=== PATIENT | male | born 1950 | race Caucasian/White ===

== ENCOUNTER 2022-03-20 07:56 | Inpatient (IN) | payer MEDICARE, OTHER ==
[2022-03-20] VITALS (26 sets, daily range): BP systolic 111–149; BP diastolic 41–83
[~2022-03-20] VITALS: Ht 157.5 cm; Wt 85.0 kg
--- NOTE | 2022-03-20 08:04 | NUR ---
TO ER BED 10. BIB RA 39 FROM HOME,GENERALIZED WEAKNESS, UNABLE TO SLEEP X 1 WEEK. 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 A&OX1. ATTACHED TO MONITOR, PACER PADS APPLIED. DR CURRY AT BEDSIDE.
--- NOTE | 2022-03-20 08:12 | NUR ---
IV LINE ESTABLISHED ON RAC #18, BLOOD DRAWN AND SENT TO LAB.
[2022-03-20] MEDS ORDERED: ONDANSETRON HCL/PF 4 MG/2 ML VIAL ONE (08:22)
[2022-03-20] MEDS ORDERED: MORPHINE SULFATE INJ 4 MG/ML DISP.SYRIN ONE ×2 (08:22→09:22)
--- NOTE | 2022-03-20 08:29 | NUR ---
ACCUCHECK 87MG/DL
[2022-03-20] MEDS ORDERED: ONDANSETRON HCL/PF 4 MG/2 ML VIAL IVP ONE (08:30)
[2022-03-20] MEDS ORDERED: MORPHINE SULFATE INJ 2 MG/ML DISP.SYRIN IV ONE ×2 (08:30→09:30)
[2022-03-20 08:34] LABS: BASOPHILS % (AUTO) 0.3 % (0.0-2.0); EOSINOPHILS % (AUTO) 0.3 % (0.0-6.0); HEMATOCRIT 24 % (39-51); HEMOGLOBIN 7.8 g/dL (13.5-17.5); LYMPHOCYTES # (AUTO) 0.9 K/uL (0.8-4.8); MEAN CORPUSCULAR HGB CONC 33 g/dl (31.0-36.0); MEAN CORPUSCULAR VOLUME 97 fL (80-96); MONOCYTES # (AUTO) 0.9 K/uL (0.1-1.30); NEUTROPHILS # (AUTO) 8.3 K/uL (1.8-8.9); NEUTROPHILS % (AUTO) 81.4 % (43.0-81.0); PLATELET COUNT (AUTO) 281 K/uL (150-450); RED BLOOD CELL COUNT(AUTO) 2.42 MIL/uL (4.5-6.0); WHITE BLOOD COUNT (AUTO) 10.2 K/uL (4.3-11.0)
[2022-03-20 08:56] LABS: CARBON DIOXIDE 26 mmol/L (21-32); CHLORIDE 106 mmol/L (98-107); CREATININE 2.8 mg/dL (0.6-1.3); GLUCOSE 101 mg/dL (74-106); POTASSIUM 4.4 mmol/L (3.5-5.1); SODIUM SERUM 139 mmol/L (136-145); UREA NITROGEN, BLOOD 41 mg/dL (7-18)
--- NOTE | 2022-03-20 08:59 | NUR ---
PAGED [facility]
[2022-03-20] MEDS ORDERED: ATROPINE SULFATE INJ 1 MG/ML VIAL ONE (09:00)
[2022-03-20] MEDS ORDERED: ATROPINE SULFATE INJ 1 MG/ML VIAL IV ONE (09:00)
--- NOTE | 2022-03-20 09:06 | NUR ---
AND DAUGHTER CAME IN, [facility]: DR MAIN JAMES-CARDIOTHORACIC SX, DR LISBETH BUTTERFIELD-,MARINE ENGINE MECHANIC, DR ZOË GORDILLO-MACHINE CLERICAL VERIFIER
[2022-03-20 09:09] LABS: ALANINE AMINOTRANSFERASE 16 U/L (12-78); ALBUMIN 2.8 g/dL (3.4-5.0); ALKALINE PHOSPHATASE 67 U/L (46-116); ASPARTATE AMINOTRANSFERASE 12 U/L (15-37); BILIRUBIN,DIRECT 0.2 mg/dL (0.0-0.2); BILIRUBIN,TOTAL 0.6 mg/dL (0.2-1.0); TOTAL PROTEIN, SERUM 6.4 g/dL (6.4-8.2)
--- NOTE | 2022-03-20 09:11 | NUR ---
PAGED DR. JAMES
--- NOTE | 2022-03-20 09:13 | NUR ---
DAUGHTER AT BEDSIDE [phone]
--- NOTE | 2022-03-20 09:29 | NUR ---
PAGED DR. JAMES AGAIN
--- NOTE | 2022-03-20 10:06 | NUR ---
PT AND FAMILY REFUSED CTA UNTIL THEY CONTACT THEIR LOCKSTITCH SLEEVE SETTER, AWARE.
[2022-03-20] MEDS ORDERED: NIFE30TA91 PO (10:17)
[2022-03-20] MEDS ORDERED: CILO100T PO (10:17)
[2022-03-20] MEDS ORDERED: LORA-259 PO (10:17)
[2022-03-20] MEDS ORDERED: CYAN-51 PO (10:17)
[2022-03-20] MEDS ORDERED: GABA300C PO (10:17)
[2022-03-20] MEDS ORDERED: FESO4TAB PO (10:17)
[2022-03-20] MEDS ORDERED: TAMS-12 PO (10:17)
[2022-03-20] MEDS ORDERED: ASPI-1169 PO (10:17)
[2022-03-20] MEDS ORDERED: RIVA15TA PO (10:17)
[2022-03-20] MEDS ORDERED: FURO40TA5 PO (10:17)
[2022-03-20] MEDS ORDERED: IBUP-1955 PO (10:17)
[2022-03-20] MEDS ORDERED: LOSA50TA39 PO (10:17)
[2022-03-20] MEDS ORDERED: DEXL60CA3 PO (10:17)
[2022-03-20] MEDS ORDERED: CARV6.252 PO (10:17)
[2022-03-20] MEDS ORDERED: FLUT1BLS6 IH (10:17)
[2022-03-20] MEDS ORDERED: AMIO200T5 PO (10:17)
[2022-03-20] MEDS ORDERED: ATOR40TA PO (10:17)
[2022-03-20] MEDS ORDERED: CLOP75TA15 PO (10:17)
--- NOTE | 2022-03-20 10:19 | NUR ---
GOING TO ICU 258, ADMMITTING AWARE.
--- NOTE | 2022-03-20 10:33 | NUR ---
ON PHONE WITH KASANDRA ROBERTS
--- NOTE | 2022-03-20 10:33 | NUR ---
Maude gomez in [facility] - 03/20/22 at 1036 by CODEY PT ON PHONE WITH KASANDRA ROBERTS
--- NOTE | 2022-03-20 10:42 | NUR ---
REPORT GIVEN TO TAJ FOR ELENITA
--- NOTE | 2022-03-20 10:50 | NUR ---
ADDITIONAL IV ESTBLAIHSED L HAND 20G
[2022-03-20] MEDS ORDERED: NITROGLYCERIN 30 GM TUBE TP PRN ×2 (11:00→11:22)
--- NOTE | 2022-03-20 11:05 | NUR ---
PT TRASNPORTED TO ICU WITH ACLS PROTOCOLS IN PLACE, PT RECIEVED BY 2 RNS AND PLACED IN BED.
--- NOTE | 2022-03-20 11:20 | NUR ---
CONSTRUCTION COST ESTIMATOR NOTE PT RECEIVED FROM THE ER REPORT GIVEN BY DANNY BROWN FOR ALT MENTAL STATUS AND BRADYCARDIA IS A/O 1X. PT NO IN ANY IMMEDIATE DISTRESS BREATHING IS EVEN AND UNLABORED. O2 SAT IN THE HIGH 90'S SBP ABOVE 100. ON NASAL CANULA 2L RAC 18 GAUGE , LEFT HAND 20 GAUGE. TROPONIN IS ELEVATED AND BMP GREATLY ELEVATED.
[2022-03-20] MEDS ORDERED: DOPamine 400 MG/D5W 250 ML RTU BAG IV PRN (11:30)
[2022-03-20] MEDS: FUROSEMIDE 40 MG/4 ML VIAL IV SCH ×2 (12:57→16:53)
--- NOTE | 2022-03-20 13:00 | NUR ---
ICU/RN DR QUEZADA TALK TO THE FAMILY .OK TO TO DO CTA WITH HIGH BUN/CREATININE LEVEL.CONSENT SIGN.
--- NOTE | 2022-03-20 13:15 | NUR ---
PT TAKEN TO CT
[2022-03-20] MEDS ORDERED: IOHEXOL-350 100 ML VIAL IV ONE (13:40)
[2022-03-20] MEDS ORDERED: IV NS 0.9% 250 ML IV ONE (13:40)
[2022-03-20] MEDS: OXYBUTYNIN CHLORIDE 5 MG TABLET PO SCH (16:53)
[2022-03-20] MEDS: CILOSTAZOL 100 MG TABLET PO SCH (16:53)
[2022-03-20] MEDS ORDERED: HEPARIN SODIUM, PORCINE 5000 UNITS/1 ML VIAL SQ SCH (17:00)
--- NOTE | 2022-03-20 18:10 | NUR ---
DR GARCÍA AT BEDSIDE
--- NOTE | 2022-03-20 18:15 | NUR ---
ICU/RN DR SCANLON SEEN THE PT.PT NEED TO BE TRANSFER TO HIGH ACUITY LEVEL OF CARE. BARREL CLEANER CODIE NOTIFIED.TRANSFER CENTER NOTIFIED.WAITING FOR THE BED.FAMILY AT BEDSIDE.
[2022-03-20] MEDS ORDERED: ESMOLOL IVPB PREMIX 2,500 MG in PREMIX 1 EA IV PRN (18:30)
--- NOTE | 2022-03-20 20:10 | NUR ---
ICU/RIPPER OPERATOR DAY CHARGE NURSE AND NIGHT CHARGE NURSE WERE CALLING [facility] TO GET THIS PT TRANSFERED OUT FOR HIGHER LEVEL OF CARE PER GHIS[place]. ALSO CALLING AMBULANCE SERVICES. FAXED OVER CHART TO [facility], THEN FOLLOWED UP TO MAKE SURE CHART WAS RECIEVED, IT WAS.
[2022-03-20] MEDS ORDERED: ATORVASTATIN 40 MG TABLET PO SCH (22:00)
[2022-03-20] MEDS ORDERED: TAMSULOSIN 0.4 MG CAP.SR.24H PO SCH (22:00)
--- NOTE | 2022-03-20 22:11 | NUR ---
RN/ICU-SPOKE TO ISAÍAS BY PHONE FROM [place] ([facility]) REGARDING PT. TRANSFER. THE SAME STATED THAT THERE IS NO BED AVAILABLE AT THIS TIME PLUS NO ACCEPTING HOSPITALIST . WILL FOLLOW UP . SPOKE TO HANNAH UNDERWOOD REGARDING THE STATUS OF TRANSFER, VERBALIZED UNDERSTANDING.
--- NOTE | 2022-03-20 22:43 | NUR ---
ICU/RESTORATION TECHNICIAN PT IS NPO DUE TO DIAGNOSIS, PT IS TO BE TRANSFERRED OUT FOR HIGHER LEVEL OF CARE.
--- NOTE | 2022-03-20 23:20 | NUR ---
ICU/SENIOR CLINICAL DATA ANALYST PT HAS A NON PRODUCTIVE COUGH FROM THE CHF, WILL CONTINUE TO MONITOR THIS PT
[2022-03-21] VITALS (21 sets, daily range): BP systolic 114–134; BP diastolic 44–90
--- NOTE | 2022-03-21 00:10 | NUR ---
ICU/SKY DIVER FAMILY AT BEDSIDE MAKING PT AGITATED. PT DOESN'T UNDERSTAND THAT HE CAN'T GET UP AND WALK AROUND. PT'S BLOOD PRESSURE INCREASED WITH AND PT ARE ARGUING OVER THIS. HAVE TRIED TO GET TO STOP, HOWEVER IT STILL GOES ON.
--- NOTE | 2022-03-21 00:45 | NUR ---
ICU/VENEER STAPLER CHARGE NURSE WENT IN TO ROOM TO SPEAK WITH TO STOP MAKING THE PT AGITATED. AND EXPRESSED THE NEED TO HAVE PT RELAX TO ALLOW THE BP TO COME DOWN.
--- NOTE | 2022-03-21 01:28 | NUR ---
ICU/DIRECTOR CLINICAL DATA NOTICED THAT AT BEGINNING OF SHIFT SWIFT WAS PINK IN COLOR, NOW TIME PROGRESS SWIFT CATH IS DARK IN COLOR THERE IS BLOODY SEDIMENTS. CALLED SENIOR JAVA SOFTWARE DEVELOPER SHE SAID TO FOLLOW UP IN AM WITH [facility]. HOWEVER WHEN PT WAS PULLED UP, PT WAS PULLING ON SWIFT CATH, BRIGHT RED BLOOD CAME OUT. WILL CONTINUE TO MONITOR THIS PT.
--- NOTE | 2022-03-21 02:01 | NUR ---
ICU/COLLEGE OR UNIVERSITY FACULTY MEMBER PT WAS CLEAN UP AND REPOSITIONED, PT APPEARS COMFORTABLE. ASKED TO SIT DOWN AND NOT ARGUE WITH PT. PT'S BLOOD PRESSURE IS SBP 114. WILL CONTINUE TO MONITOR THIS PT.
--- NOTE | 2022-03-21 03:15 | NUR ---
ICU/MOLDING MANAGER CALLED TO SEE IF THERE WAS ANY CHANCE A BED IS AVAILABLE, HOWEVER THERE IS NOT.
[2022-03-21 03:56] LABS: BASOPHILS % (AUTO) 0.4 % (0.0-2.0); EOSINOPHILS % (AUTO) 0.2 % (0.0-6.0); HEMATOCRIT 22 % (39-51); HEMOGLOBIN 7.5 g/dL (13.5-17.5); LYMPHOCYTES # (AUTO) 0.8 K/uL (0.8-4.8); MEAN CORPUSCULAR HGB CONC 34 g/dl (31.0-36.0); MEAN CORPUSCULAR VOLUME 97 fL (80-96); MONOCYTES # (AUTO) 1.2 K/uL (0.1-1.30); MONOCYTES % (AUTO) 10.7 % (2.0-12.0); NEUTROPHILS # (AUTO) 8.8 K/uL (1.8-8.9); NEUTROPHILS % (AUTO) 81.7 % (43.0-81.0); PLATELET COUNT (AUTO) 232 K/uL (150-450); RED BLOOD CELL COUNT(AUTO) 2.31 MIL/uL (4.5-6.0); WHITE BLOOD COUNT (AUTO) 10.8 K/uL (4.3-11.0)
[2022-03-21 04:22] LABS: ALBUMIN 2.6 g/dL (3.4-5.0); BILIRUBIN,TOTAL 0.6 mg/dL (0.2-1.0); CALCIUM, SERUM 7.8 mg/dL (8.5-10.1); CREATININE 3.1 mg/dL (0.6-1.3); MAGNESIUM 2.2 mg/dL (1.8-2.4); PHOSPHORUS 6.3 mg/dL (2.5-4.9); POTASSIUM 4.5 mmol/L (3.5-5.1); TOTAL PROTEIN, SERUM 6.1 g/dL (6.4-8.2)
[2022-03-21 04:26] LABS: THYROID STIMULATING HORMONE 6.866 uIU/mL (0.358-3.74)
--- NOTE | 2022-03-21 06:10 | NUR ---
ICU/PROJECT MANAGEMENT DIRECTOR CHARGE NURSE CALLED [facility] TO SEE IF THERE WAS ANY CHANGES IF THERE WAS BED AVAILABILITY IN ICU. AND THERE WASN'T ANY BED IN ICU.
--- NOTE | 2022-03-21 07:05 | NUR ---
COMMUNICATIONS EQUIPMENT INSTALLER Bedside report taken from [facility] nurse Karen RN. pt awake, oriented x2, confused but talking, follows commands. PERRLA. pt on 3 L n/c tolerating well. spo20 98%. sherry lung sounds coarse, pt has nonproductive cough. pt nsr/ bradycardic on monitor with HR 58-62. bowel sounds present, abdomen soft but distended. pt has hurt, intact and draining, kaitlynn brown color urine with sediment, pt oliguric. pt has edema in bue and ble 3+. bruising noted on left thigh, no other wounds noted at this time. all lines traced. vitals stable. safety measures in place. at bedside. awaiting pt transfer to higher level of care [facility].
[2022-03-21] MEDS: CILOSTAZOL 100 MG TABLET PO SCH (08:14)
[2022-03-21] MEDS: OXYBUTYNIN CHLORIDE 5 MG TABLET PO SCH (08:14)
[2022-03-21] MEDS: FUROSEMIDE 40 MG/4 ML VIAL IV SCH (08:15)
--- NOTE | 2022-03-21 08:35 | NUR ---
COUNTERINTELLIGENCE SPECIALIST Dr Monge messaged to inform that pt sbp increasing to 120-130s, prn sbp meds requested from md ramsey also made aware that unable to start esmolol because HR 53-60 and all am meds given, awaiting response from md. charge nurse Anu MATTHEW aware.
--- NOTE | 2022-03-21 08:54 | NUR ---
OVERLOCK SEWING MACHINE OPERATOR Dr Malone at bedside assessing pt and updated on pt status. aware that Dr Monge messaged 5 mins ago to inform that pt sbp increasing to 120-130s, prn sbp meds requested from md ramsey also made aware that unable to start esmolol because HR 53-60 and all am meds given, awaiting response from Dr Monge. No new orders per Dr Malone, reach out to dr Monge again in 10 mins per md. charge nurse Anu MATTHEW aware.
--- NOTE | 2022-03-21 08:55 | NUR ---
MANAGER CATEGORY laborer prestressed concrete team made aware that Dr Monge messaged to inform that pt sbp increasing to 120-130s, prn sbp meds requested from md ramsey also made aware that unable to start esmolol because HR 53-60 and all am meds given, awaiting response from . laborer prestressed concrete team will infom to call ICU stat regarding pt. awaiting call back. charge nurse Anu MATTHEW aware.
[2022-03-21] MEDS ORDERED: Medication Not On Formulary EA (Fluticasone/Umeclidin/Vilanter (Trelegy Ellipta 100-62.5 IH SCH (09:00)
[2022-03-21] MEDS ORDERED: ASPIRIN 81 MG TAB.CHEW PO SCH (09:00)
[2022-03-21] MEDS ORDERED: PANTOPRAZOLE 40 MG TABLET.DR PO SCH (09:00)
[2022-03-21] MEDS ORDERED: GABAPENTIN 300 MG CAPSULE PO SCH (09:00)
[2022-03-21] MEDS ORDERED: CYANOCOBALAMIN 500 MCG TABLET PO SCH (09:00)
[2022-03-21] MEDS ORDERED: CLOPIDOGREL BISULFATE 75 MG TABLET PO SCH (09:00)
--- NOTE | 2022-03-21 09:05 | NUR ---
CLAY PROCESSING LABOURER Dr Monge at bedside assessing pt and and updated on pt status. Md aware that pt sbp increasing to 120-130s, prn sbp meds requested from , also made aware that unable to start esmolol because HR 53-60 and all am meds given, verbal order for hydraulizine 10 mg q4hr prn for sbp >130 taken from md and entered per md. charge nurse Anu MATTHEW aware.
[2022-03-21] MEDS ORDERED: hydrALAZINE HCL IV 20 MG VIAL IV PRN (09:13)
--- NOTE | 2022-03-21 09:25 | NUR ---
ADULT MINISTRIES DIRECTOR ADULT MINISTRIES DIRECTOR prn Hydraulizine given per md order.
--- NOTE | 2022-03-21 10:12 | NUR ---
NOTCHED BLADE LOADER Dr Galindo Reynolds messaged per family request for anxiety medication, awaiting md response. charge nurse Anu MATTHEW aware.
--- NOTE | 2022-03-21 10:19 | NUR ---
UNIONMELT OPERATOR Nursing rubber stamps and dies supervisor froy MATTHEW aware that pt has to transfer to higher level of care. Per nursing rubber stamps and dies supervisor, senior case manager is actively working on getting pt transferred, will update when information available. charge nurse Anu MATTHEW aware.
--- NOTE | 2022-03-21 10:27 | NUR ---
SOLAR ELECTRIC/PHOTOVOLTAIC INSTALLER Dr Galindo Reynolds messaged for 2nd time per family request for anxiety medication, awaiting md response. charge nurse Anu MATTHEW aware.
--- NOTE | 2022-03-21 10:50 | NUR ---
AEROSPACE PRODUCTS SALES ENGINEER Dr Suggs made aware that Dr Galindo Reynolds messaged for twice per family request for anxiety medication, no response. verbal order taken and entered per dr suggs for ativan 0.5 mg po q6 hr prn for anxiety. no other orders at this time. charge nurse Anu MATTHEW aware.
--- NOTE | 2022-03-21 10:56 | NUR ---
TAKE OFF MAN prn ativan 0.5 mg po given to pt per family request for anxiety.
--- NOTE | 2022-03-21 10:58 | NUR ---
JUNIOR HIGH SCHOOL TEACHER Called [facility] [phone] to give report, spoke to charge nurse Sharon MATTHEW, unable to give report at this time, admitting RN busy, call back number given, per charge nurse RN to call for report in [address] Mlaone and charge nurse Anu RN aware.
[2022-03-21] MEDS ORDERED: LORAZEPAM 0.5 MG TABLET PO PRN (11:00)
--- NOTE | 2022-03-21 11:10 | NUR ---
KNOCK UP ASSEMBLER Telephone report given to [facility] ICU nurse Nadia MATTHEW at [phone]. awaiting transport for pt product picker.
--- NOTE | 2022-03-21 11:17 | NUR ---
GLUE LINE OPERATOR Bedside report given to transport tomahawk weapon system operator and Harish MATTHEW. Pt discharged to [facility] for higher level of care by ambulance transport. pt awake, anxious but follows commands. pt has no drips or IVF at this time. pt on 3 L n/c, tolerating well. vitals stable. safety measures in place. pt has no belongings at bedside. pt and daughter at bedside during transport. pt going to [facility] ICU room 2203. charge nurse Anu MATTHEW aware.
== END 2022-03-21 11:17 | disposition short-term general hospital (02) | DRG 280 ==
LOC: ER 08:05 → ICU 11:03
PROVIDERS: ADMIT Registered Nurse; ATTEND Registered Nurse
DX: I71.01 Dissection of thoracic aorta (principal); I21.A1 Myocardial infarction type 2; I50.33 Acute on chronic diastolic (congestive) heart failure; J96.21 Acute and chronic respiratory failure with hypoxia; N17.0 Acute kidney failure with tubular necrosis; I13.0 Hypertensive heart and chronic kidney disease with heart failure and stage 1 through stage 4 chronic kidney disease, or unspecified chronic kidney disease; G93.40 Encephalopathy, unspecified; N13.30 Unspecified hydronephrosis; J98.11 Atelectasis; Z20.822 Contact with and (suspected) exposure to COVID-19; I25.10 Atherosclerotic heart disease of native coronary artery without angina pectoris; Z95.1 Presence of aortocoronary bypass graft; Z79.02 Long term (current) use of antithrombotics/antiplatelets; Z79.82 Long term (current) use of aspirin; Z79.899 Other long term (current) drug therapy; D64.9 Anemia, unspecified; E78.5 Hyperlipidemia, unspecified; R00.1 Bradycardia, unspecified; E66.9 Obesity, unspecified; N40.0 Benign prostatic hyperplasia without lower urinary tract symptoms; N18.9 Chronic kidney disease, unspecified; Z68.32 Body mass index [BMI] 32.0-32.9, adult; I48.91 Unspecified atrial fibrillation; E83.39 Other disorders of phosphorus metabolism; E88.09 Other disorders of plasma-protein metabolism, not elsewhere classified; Z79.01 Long term (current) use of anticoagulants; Z79.51 Long term (current) use of inhaled steroids; I71.2 Thoracic aortic aneurysm, without rupture; I35.1 Nonrheumatic aortic (valve) insufficiency
CPT/HCPCS: 36415; 71045-TC; 76770-TC; 80048-TC; 80053-TC; 80076-TC; 82962-TC; 83605-TC; 83735-TC; 83880; 84100-TC; 84443-TC; 84484-TC; 85025-TC; 85730-TC; 87040-TC; 93307-TC; 94799-TC; A4216; C9803; G0378; J0360; J0461; J1940; J2270; J2405; J3490; J7050; Q9967